=== PATIENT | male | born 1935 | race Caucasian/White ===

== ENCOUNTER 2021-01-01 17:48 | Emergency (ER) | payer OTHER ==
--- NOTE | 2021-01-01 18:16 | EDM.PDOC ---
ED HPI GENERAL MEDICAL PROBLEM - General Chief Complaint: General Stated Complaint: MEDICAL Time Seen by Provider: 01/01/21 18:08 Source of Information: Reports: Patient History Limitations: Reports: No Limitations - History of Present Illness INITIAL COMMENTS - FREE TEXT/NARRATIVE: Shine is an 85-year-old male presenting to the ED via a [facility] for evaluation of hypotension and dizziness. The patient has a history significant for diabetes mellitus on insulin, coronary artery disease status post recent stent placement, devious history of CABG, aortic stenosis awaiting placement of a transcatheter aortic valve replacement, and hypertension. The patient was with his daughter who O taken him out onto the deck to supervise him doing his exercises. During that episode he became lightheaded and dizzy and his daughter checked his blood pressure finding to be 99/57. She brought him inside and rechecked his blood pressure and was 97/50 and she became concerned and called EMS to bring him in for evaluation. The patient states he normally drinks about 120 ounces of water a day but today has only taken in about 20 ounces. At this time other than dizziness he has no other complaints. He denies any chest pain or shortness of breath. 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 - Related Data Allergies Allergy/AdvReac Type Severity Reaction Status Date / Time ciprofloxacin Allergy Other Verified 01/01/21 18:27 Home Meds: Home Meds Acetaminophen [Tylenol Arthritis Pain] 650 mg PO Q8H 01/01/21 [History] Acetaminophen/Codeine [Tylenol with Codeine No.3 300MG/30MG] 1 tab PO Q8H PRN 01/01/21 [History] Albuterol Sulfate [Proair Digihaler] 2 inh IH Q4H 01/01/21 [History] Albuterol/Ipratropium [DuoNeb 3.0-0.5 MG/3 ML] 3 ml INH Q6H PRN 01/01/21 [History] Alogliptin Benzoate [Nesina] 12.5 mg PO DAILY 01/01/21 [History] Apixaban [Eliquis] 2.5 mg PO BID 01/01/21 [History] Azithromycin [Zithromax] 250 mg PO BID 01/01/21 [History] Budesonide/Formoterol [Symbicort 80-4.5 MCG] 2 inh INH BID 01/01/21 [History] Bumetanide [Bumex] 1 mg PO BID 01/01/21 [History] Carboxymethylcellulose Sodium [Artificial Tears] 1 drop EYEBOTH ASDIRECTED 01/01/21 [History] Clopidogrel [Plavix] 75 mg PO DAILY 01/01/21 [History] Cyanocobalamin (Vitamin B-12) [B-12] 1,000 mcg PO DAILY 01/01/21 [History] Famotidine [Pepcid] 20 mg PO BID 01/01/21 [History] Ferrous Sulfate 325 mg PO DAILY 01/01/21 [History] Finasteride [Proscar] 5 mg PO DAILY 01/01/21 [History] Gabapentin [Neurontin] 400 mg PO TID 01/01/21 [History] Insulin Aspart [NovoLOG] 4 - 15 units SUBCUT TIDMEALS 01/01/21 [History] Insulin Glarg,Human.Rec.Analog [Lantus Solostar] 30 unit SQ BID 01/01/21 [History] Lactobacillus Rhamnosus GG [Culturelle] 1 cap PO DAILY 01/01/21 [History] Loperamide [Imodium AD] 2 mg PO QID PRN 01/01/21 [History] Mometasone Furoate [Asmanex] 220 mcg IH DAILY 01/01/21 [History] Multivit with Iron,Minerals [Complete Senior] 1 tab PO DAILY 01/01/21 [History] [place]-3 Fatty Acids/Fish Oil [Fish Oil 1,000 mg Capsule] 1 cap PO BEDTIME 01/01 [History] Simvastatin [Zocor] 20 mg PO DAILY 01/01/21 [History] Tamsulosin HCl [Flomax] 0.8 mg PO BEDTIME 01/01/21 [History] Tiotropium [Spiriva] 18 mcg INH DAILY 01/01/21 [History] amLODIPine Besylate [Norvasc] 10 mg PO DAILY 01/01/21 [History] azaTHIOprine [Imuran] 50 mg PO DAILY 01/01/21 [History] carvediloL [Coreg] 12.5 mg PO BID 01/01/21 [History] hydrALAZINE [Apresoline] 25 mg PO Q8H 01/01/21 [History] polyethylene glycoL 3350 [MiraLAX] 17 gm PO DAILY 01/01/21 [History] predniSONE [Prednisone] 5 mg PO DAILY 01/01/21 [History] ED ROS GENERAL - Review of Systems Review Of Systems: See Below Constitutional: Reports: No Symptoms HEENT: Reports: No Symptoms Respiratory: Reports: No Symptoms Cardiovascular: Reports: Blood Pressure Problem Endocrine: Reports: No Symptoms GI/Abdominal: Reports: No Symptoms : Reports: No Symptoms Musculoskeletal: Reports: No Symptoms Skin: Reports: No Symptoms Neurological: Reports: Dizziness Psychiatric: Reports: No Symptoms Hematologic/Lymphatic: Reports: No Symptoms Immunologic: Reports: No Symptoms ED EXAM, GENERAL - Physical Exam Exam: See Below Exam Limited By: No Limitations General Appearance: Alert, No Apparent Distress Eye Exam: Bilateral Eye: EOMI, PERRL Throat/Mouth: Normal Inspection, Normal Lips, Normal Oropharynx, Normal Voice, No Airway Compromise Head: Atraumatic, Normocephalic Neck: Normal Inspection, Supple, Non-Tender, Full Range of Motion Respiratory/Chest: No Respiratory Distress, Lungs Clear, Normal Breath Sounds Cardiovascular: Normal Peripheral Pulses, Regular Rate, Rhythm, No Edema, No JVD, Systolic Murmur (3/6 systolic ejection murmur) Peripheral Pulses: 2+: Radial (L), Radial (R), Posterior Tibial (L), Posterior Tibial (R) GI/Abdominal: Normal Bowel Sounds, Soft, Non-Tender Back Exam: Normal Inspection Extremities: Normal Inspection, Normal Range of Motion Neurological: Alert, Oriented, Normal Cognition, No Motor/Sensory Deficits Psychiatric: Normal Affect, Normal Mood Skin Exam: Warm, Dry, Intact, Normal Color Lymphatic: No Adenopathy #1 Interpretation EKG Date: 01/01/21 Time: 18:35 Rhythm: NSR Rate (Beats/Min): 86 [place]: Normal P-Wave: Present QRS: Normal ST-T: Other (Borderline repolarization abnormality) QT: Prolonged Comparison: NA - No Prior EKG Course - Vital Signs Last Recorded V/S: Last Vital Signs Temp 36.6 C 01/01/21 17:52 Pulse 83 01/01/21 18:03 Resp 18 01/01/21 18:03 BP 142/66 H 01/01/21 18:03 Pulse Ox 94 L 01/01/21 17:52 - Orders/Labs/Meds Orders: Active Orders 24 hr Category Date Time Status EKG Documentation Completion [RC] ASDIRECTED Care 01/01/21 18:22 Active Sodium Chloride 0.9% [Normal Saline] 1,000 ml Med 01/01/21 18:30 Active IV ASDIRECTED EKG 12 Lead [EK] Routine Ther 01/01/21 18:21 Ordered Medication Orders Sodium Chloride (Normal Saline) 1,000 mls @ 500 mls/hr IV ASDIRECTED ABHI Last Admin: 01/01/21 18:25 Dose: 500 mls/hr Documented by: BREANNA Labs: Laboratory Tests 01/01/21 01/01/21 Range/Units 18:35 18:35 WBC 7.8 (4.5-11.0) K/uL RBC 3.32 L (4.30-5.90) M/uL Hgb 11.2 L (12.0-15.0) g/dL Hct 34.2 L (40.0-54.0) % MCV 103 H (80-98) fL MCH 34 H (27-31) pg MCHC 33 (32-36) % Plt Count 224 (150-400) K/uL Neut % (Auto) 67.5 H (36-66) % Lymph % (Auto) 16.0 L (24-44) % [place] % (Auto) 13.8 H (2-6) % Eos % (Auto) 2.6 (2-4) % Baso % (Auto) 0.1 (0-1) % Sodium 139 L (140-148) mmol/L Potassium 4.0 (3.6-5.2) mmol/L Chloride 100 (100-108) mmol/L Carbon Dioxide 25 (21-32) mmol/L Anion Gap 18.0 H (5.0-14.0) mmol/L BUN 37 H (7-18) mg/dL Creatinine 1.9 H (0.8-1.3) mg/dL Est Cr Clr Drug Dosing 34.25 mL/min Estimated GFR (MDRD) 34 L (>60) Glucose 142 H (74-106) mg/dL Calcium 8.8 (8.5-10.1) mg/dL Total Bilirubin 0.5 (0.2-1.0) mg/dL AST 11 L (15-37) U/L ALT 20 (12-78) U/L Alkaline Phosphatase 83 (46-116) U/L Troponin I < 0.017 (0.000-0.056) ng/mL NT-Pro-B Natriuret Pep 1265 H (5-450) pg/mL Total Protein 7.0 (6.4-8.2) g/dL Albumin 3.3 L (3.4-5.0) g/dL Globulin 3.7 H (2.3-3.5) g/dL Albumin/Globulin Ratio 0.9 L (1.2-2.2) Meds: Medications Generic Name Dose Route Start Last Admin Trade Name Freq PRN Reason Stop Dose Admin Sodium Chloride 1,000 mls @ 500 mls/hr 01/01/21 18:30 01/01/21 18:25 Normal Saline IV 500 mls/hr ASDIRECTED ABHI Administration Departure - Departure Time of Disposition: 19:32 Disposition: Home, Self-Care 01 Clinical Impression: Hypotension due to hypovolemia, Dehydration, Chronic kidney disease (CKD) stage G3a/A1, moderately decreased glomerular filtration rate (GFR) between 45-59 mL/min/1.73 square meter and albuminuria creatinine ratio less than 30 mg/g Congestive heart failure Qualifiers: Heart failure type: unspecified Heart failure chronicity: chronic Qualified Code(s): I50.9 - Heart failure, unspecified Aortic stenosis Qualifiers: Cardiac valve disease etiology: nonrheumatic Qualified Code(s): I35.0 - Nonrheumatic aortic (valve) stenosis - Discharge Information Instructions: Hypotension, [id number], Dehydration, Adult, [id number] Referrals: Seferino Neri MD [Primary Care Provider] - Forms: ED Department Discharge Care Plan Goals: Your work-up today shows that you likely had an episode of low blood pressure due to mild to moderate dehydration. The 500 cc intravenous fluid should bring it back up to normal status. It does show also that you are in mild to moderate heart failure and that you have mild to moderate kidney failure. I do not have outside lab values to compare to your previous tests but this is something you should be aware of. During the high heat and humidity that we have been having you need to take in at least 120 ounces of water a day to maintain good hydration. Sepsis Event Note (ED) - Evaluation Sepsis Screening Result: No Definite Risk - Focused Exam Vital Signs: Vital Signs Temp Pulse Resp BP Pulse Ox 01/01/21 18:03 83 18 142/66 H 01/01/21 17:52 36.6 C 86 11 L 142/66 H 94 L - Problem List & Annotations (1) Dehydration SNOMED Code(s): 42479572 Code(s): E86.0 - DEHYDRATION Status: Acute Priority: Medium Current Visit: Yes (2) Hypotension due to hypovolemia SNOMED Code(s): 23060164 Code(s): I95.89 - OTHER HYPOTENSION; E86.1 - HYPOVOLEMIA Status: Acute Priority: Medium Current Visit: Yes (3) Aortic stenosis SNOMED Code(s): 64007859 Code(s): I35.0 - NONRHEUMATIC AORTIC (VALVE) STENOSIS Status: Chronic Priority: High Current Visit: Yes Qualifiers: Cardiac valve disease etiology: nonrheumatic Qualified Code(s): I35.0 - Nonrheumatic aortic (valve) stenosis (4) Chronic kidney disease (CKD) stage G3a/A1, moderately decreased glomerular filtration rate (GFR) between 45-59 mL/min/1.73 square meter and albuminuria creatinine ratio less than 30 mg/g SNOMED Code(s): 215955486, 175285361, 004105880, 185711015 Code(s): N18.31 - CHRONIC KIDNEY DISEASE, STAGE 3A Status: Chronic Priority: Medium Current Visit: Yes (5) Congestive heart failure SNOMED Code(s): 12055724 Code(s): I50.9 - HEART FAILURE, UNSPECIFIED Status: Chronic Priority: High Current Visit: Yes Qualifiers: Heart failure type: unspecified Heart failure chronicity: chronic Qualifi ed Code(s): I50.9 - Heart failure, unspecified - Problem List Review Problem List Initiated/Reviewed/Updated: Yes - My Orders Last 24 Hours: My Active Orders 01/01/21 18:21 EKG 12 Lead [EK] Routine 01/01/21 18:22 EKG Documentation Completion [RC] ASDIRECTED 01/01/21 18:30 Sodium Chloride 0.9% [Normal Saline] 1,000 ml IV ASDIRECTED - Assessment/Plan Last 24 Hours: My Active Orders 06/23/21 18:21 EKG 12 Lead [EK] Routine 01/01/21 18:22 EKG Documentation Completion [RC] ASDIRECTED 01/01/21 18:30 Sodium Chloride 0.9% [Normal Saline] 1,000 ml IV ASDIRECTED
[2021-01-01] MEDS ORDERED: Sodium Chloride 0.9% 1,000 ML IV SCH (18:30)
--- NOTE | 2021-01-02 08:51 | CR ---
CHEST: 2 view CLINICAL HISTORY:Dizziness COMPARISON:None FINDINGS: Patient has had previous sternotomy. Heart size and pulmonary vascularity are normal. There are atherosclerotic changes in the aorta.. Lungs are clear Impression: No acute cardiac pulmonary process Previous sternotomy.
== END 2021-01-01 23:26 ==
LOC: JP.ED 17:48
DX: I95.9 Hypotension, unspecified (principal); I35.0 Nonrheumatic aortic (valve) stenosis; E11.22 Type 2 diabetes mellitus with diabetic chronic kidney disease; I13.0 Hypertensive heart and chronic kidney disease with heart failure and stage 1 through stage 4 chronic kidney disease, or unspecified chronic kidney disease; N18.31 Chronic kidney disease, stage 3a; E86.1 Hypovolemia; I25.10 Atherosclerotic heart disease of native coronary artery without angina pectoris; E86.0 Dehydration; Z88.1 Allergy status to other antibiotic agents; Z79.02 Long term (current) use of antithrombotics/antiplatelets; Z79.899 Other long term (current) drug therapy; Z79.4 Long term (current) use of insulin; Z95.1 Presence of aortocoronary bypass graft
CPT/HCPCS: 36415; 71046; 80053; 83880; 84484; 85025; 87635; 93005; 99285; J7030; U0002